=== PATIENT | female | born 1950 | race Caucasian/White ===

== ENCOUNTER → 2017-04-01 | Outpatient (CLI) | payer MEDICARE ==
[~2017-04-01] MED LIST: ASCO10007 PO; ASPI-515 PO; CA C1TAB63 PO; CELE200C PO; CHOL500014 PO; CHRO1TAB6 PO; CHRO200C PO; CRAN1TAB6 PO; CYAN100028 PO; FLAX1CAP PO; LUTE1CAP PO; MELO-184 PO; MULT-82 PO; OMEG1CAP6 PO; PHEN30CA2 PO; PSYL3.4P5 PO; TRAZ150T68 PO; UBID1CAP24 PO; VENL225T PO; VITA150T PO; magnesium PO
== END | disposition home or self-care (01) ==
LOC: CFH 06:49
PROVIDERS: ATTEND Internal Medicine Cardiovascular Disease
DX: I08.3 Combined rheumatic disorders of mitral, aortic and tricuspid valves (principal)
CPT/HCPCS: 93306

== ENCOUNTER → 2017-07-19 | Outpatient (CLI) | payer MEDICARE | END | disposition home or self-care (01) | LOC: CFH 08:18 | PROVIDERS: ATTEND Internal Medicine | DX: Z12.31 Encounter for screening mammogram for malignant neoplasm of breast (principal) | CPT/HCPCS: 77063; G0202 ==

== ENCOUNTER 2017-11-30 09:38 | Emergency (ER) | payer MEDICARE ==
[~2017-11-30] VITALS: Ht 170.2 cm; Wt 109.0 kg
[~2017-11-30 09:38] MED LIST changes: +ASCO100019 PO; -ASCO10007 PO; -CHOL500014 PO; +CHOL500045 PO; -MELO-184 PO; +MELO15TA24 PO; +MULT-224 PO; -MULT-82 PO; -PHEN30CA2 PO; +PHEN30CA3 PO; +TRAZ150T62 PO; -TRAZ150T68 PO; -UBID1CAP24 PO; +UBID1CAP43 PO
[2017-11-30 11:00] LABS: BASOPHILS # (AUTO) 0.01 x10^3/uL (0-0.1); BASOPHILS % (AUTO) 0 % (0-1); EOSINOPHILS # (AUTO) 0.14 x10^3/uL (0-0.4); EOSINOPHILS % (AUTO) 2 % (1-7); LYMPHOCYTES % (AUTO) 15 % (22-44); MD NO; MEAN CORPUSCULAR HGB CONC 34.3 g/dL (32.4-35.8); MEAN CORPUSCULAR VOLUME 93.2 fL (80-100); MEAN PLATELET VOLUME 7.4 fL (7.4-10.4); MONOCYTES # (AUTO) 0.75 x10^3/uL (0.2-0.8); MONOCYTES % (AUTO) 9 % (2-9); NEUTROPHILS # (AUTO) 6.43 x10^3/uL (1.8-6.8); NEUTROPHILS % (AUTO) 75 % (42-75); PLATELET COUNT 283 x10^3/uL (130-400); RED BLOOD COUNT 4.93 x10^6/uL (3.82-5.3); RED CELL DISTRIBUTION WIDTH 13.6 % (9.6-15.2)
[2017-11-30 11:04] VITALS: BP 156/103
[2017-11-30 11:13] LABS: ALBUMIN 3.9 g/dL (3.4-5.0); ANION GAP 4 mmol/L (5-15); CALCIUM 9.8 mg/dL (8.5-10.1); CHLORIDE 106 mmol/L (98-107); CREATININE 0.97 mg/dL (0.55-1.02)
[2017-11-30 11:16] LABS: TROPONIN I < 0.015 ng/mL (0.000-0.045)
== END 2017-11-30 12:09 | disposition home or self-care (01) ==
LOC: ED 12:00
DX: S29.012A Strain of muscle and tendon of back wall of thorax, initial encounter (principal); I10 Essential (primary) hypertension; X58.XXXA Exposure to other specified factors, initial encounter; Y93.89 Activity, other specified; Y92.89 Other specified places as the place of occurrence of the external cause; Y99.8 Other external cause status
CPT/HCPCS: 36415; 71045; 80048; 82040; 84484; 85025; 85379; 93005; 99285

== ENCOUNTER → 2018-08-04 | Outpatient (CLI) | payer MEDICARE ==
[~2018-08-04] MED LIST changes: -CHRO200C PO; +CHRO200C2 PO
== END | disposition home or self-care (01) ==
LOC: CFH 14:38
PROVIDERS: ATTEND Internal Medicine
DX: Z12.31 Encounter for screening mammogram for malignant neoplasm of breast (principal)
CPT/HCPCS: 77063; 77067